=== PATIENT | male | born 1955 | race Caucasian/White ===

== ENCOUNTER 2017-05-16 15:48 | Emergency (ER) | payer OTHER, MEDICAID ==
[2017-05-16 15:53] VITALS: BP 138/90; BMI 25.8
--- NOTE | 2017-05-16 17:36 | DR.EXTPAIN ---
HPI - Time seen Time seen: 17:40 - PCP Primary Care Physician: JESSICA - Complaint/Symptoms Chief Complaint Doctor Comments: Patient is a runner presents with complaint of left heel spur. He has been treated with injections by his primary care physician but today he presents with said complaint Chief Complaint:: PT. C/O LEFT FOOT PAIN THAT IS RADIATING UP TO LEFT CALF AREA. PT. STATES THE PAIN HAS BEEN GOING ON FOR ABOUT A WEEK. PT. STATES HE HAS A SPUR TO FOOT. - Source History Provided: Patient - Mode of arrival Mode of Arrival: Ambulatory - Timing Onset of Chief Complaint: 05/09/17 PMH - PMH Past Medical History: No Past Surgical History: Yes Surgical History: Other Past Surgical History Comment: HERNIA REPAIR - Family History History of Family Medical Conditions: No - Social History Does patient currently use any type of tobacco product: No Have you used tobacco products in the last 12 months: No Type of Tobacco Use: None Does any household member use tobacco: No Alcohol Use: None Do you use any recreational Drugs:: No Lives With: Alone Lives Where: Home - infectious screening In the last 2 months have you had wt loss of >10#?: NO Have you had fever, night sweats or hemotysis?: No Have you traveled outside the country in the last 6 months?: No Isolation: Standard ROS - Review of Systems Constitutional: No Symptoms Reported Eyes: No Symptoms Reported ENTM: No Symptoms Reported Respiratoy: No Symptoms Reported Cardiovascular: No Symptoms Reported Gastrointestinal/Abdominal: No Symptoms Reported Genitourinary: No Symptoms Reported Neurological: No Symptoms Reported Musculoskeletal: No Symptoms Reported Integumentary: No Symptoms Reported Hematologic/Lymphatic: No Symptoms Reported Endocrine: No Symptoms Reported Psychiatric: No Symptoms Reported All Other Systems: Reviewed and Negative PE - Vital Signs Vitals: Temperature 98.6 F Pulse Rate 96 Respiratory Rate 18 Blood Pressure 138/90 O2 Sat by Pulse Oximetry 97 - General Limitations: No Limitations General Appearance: Alert, In No Apparent Distress - Head Head Exam: Normal Inspection, Atraumatic - Eyes Eye exam: Normal Appearance, PERRL, EOMI - ENT ENT Exam: Normal Exam - Neck Neck Exam: Normal Inspection, Full ROM - Chest Chest Inspection: Normal Inspection - Respiratory Respiratory Exam: Normal Lung Sounds Bilat Respiratory Exam: Bilateral Clear to Auscultation - Cardiovascular Cardiovascular Exam: Regular Rate, Normal Rhythm - Abdominal Exam Abdominal Exam: Normal Inspection Abdominal Tenderness: negative: RUQ, RLQ, LUQ, LLQ, Epigastrium, Suprapubic, Diffuse, Mild, Moderate, Severe, Other - Extremities Extremities Exam: Normal Inspection, Full ROM - Upper Extremities Shoulder Exam: Normal Inspection, Full ROM Arm Exam: Normal Inspection, Full ROM Elbow Exam: Normal Inspection Forearm Exam: Normal Inspection Hand Exam: Normal Inspection Neuromotor Exam: Normal Exam Neurosensory Exam: Normal Exam Hand Tendon Exam: Flexor Digitorium Profundus (Location) Upper Ext. Vascular Exam: Capillary Refill - Lower Extremities Hip/Pelvis Exam: Normal Inspection Upper Leg Exam: Normal Inspection Knee Exam: Normal Inspection Lower Leg Exam: Normal Inspection Ankle Exam: Normal Inspection Foot/Toe Exam: Normal Inspection Neurovascular/Tendon Exam: Normal Capillary Refill Gait Exam: Observed & Limited by Pain - Back Back Exam: Normal Inspection - Neurological Neurological Exam: Alert, Oriented X3, CN II-XII Intact - Psychiatric Psychiatric Exam: Normal Affect - Skin Skin Exam: Warm, Dry, Intact - Diagnosis Discharge Problem: Heel spur Qualifiers: Laterality: left Qualified Code(s): M77.32 - Calcaneal spur, left foot - Discharge Plan Condition: Stable - Follow ups/Referrals Follow ups/Referrals: WANDA LOPEZ [Primary Care Provider] - 3 days - Instructions
[2017-05-16] MEDS ORDERED: DECADRON INJ IM ONE (17:51)
[2017-05-16] MEDS ORDERED: DECADRON INJ ONE (17:55)
== END 2017-05-16 18:04 | disposition home or self-care (01) ==
LOC: ER 15:57
DX: M77.32 Calcaneal spur, left foot (principal)
CPT/HCPCS: 96372; 99282; J1100